=== PATIENT | male | born 1965 | race Two or more races ===

== ENCOUNTER 2024-04-12 23:37 | Emergency (ER) | payer OTHER ==
[~2024-04-12] VITALS: Ht 167.6 cm; Wt 50.9 kg
[2024-04-12 23:55] VITALS: TEMP 98.7
[2024-04-13 02:00] VITALS: BP 102/65; PULSE 72; RESP 26
[2024-04-13] MEDS: IBUPROFEN 400 MG TABLET PO ONE (03:33)
[2024-04-13 03:46] LABS: GLUCOMETER DEV NAME(LOC) ERT.5; GLUCOSE,POINT OF CARE 141 MG/DL (70-110)
[2024-04-17] MEDS ORDERED: DOCU-385 PO (11:05)
[2024-04-17] MEDS ORDERED: HEPA500018 SQ (11:07)
[2024-04-17] MEDS ORDERED: FAMO20 PO (11:07)
[2024-04-17] MEDS ORDERED: MULT-664 PO (11:08)
[2024-04-17] MEDS ORDERED: ACET-2247 PO (11:09)
[2024-04-17] MEDS ORDERED: ALBU2.5V39 NEB (11:11)
[2024-04-17] MEDS ORDERED: INSU100V SQ (11:12)
== END 2024-04-13 04:58 | disposition home or self-care (01) ==
LOC: EMS 23:41
DX: M79.18 Myalgia, other site (principal); E11.9 Type 2 diabetes mellitus without complications; J44.9 Chronic obstructive pulmonary disease, unspecified; F17.210 Nicotine dependence, cigarettes, uncomplicated; Z86.73 Personal history of transient ischemic attack (TIA), and cerebral infarction without residual deficits; Z88.0 Allergy status to penicillin; Z88.2 Allergy status to sulfonamides
CPT/HCPCS: 72100; 82962; 99283